=== PATIENT | female | born 1945 | race Caucasian/White ===

== ENCOUNTER → 2021-02-14 10:22 | Outpatient (CLI) | payer MEDICARE, SELFPAY ==
--- NOTE | ~2021-02-14 | XR_ITS ---
EXAMINATION: XR shoulder RT min 2V DATE: 02/14/2021 10:55 INDICATION: Right shoulder pain TECHNIQUE: AP internally and externally rotated, AP oblique externally rotated and axillary views of the affected shoulder were obtained. COMPARISON: None FINDINGS: Normal alignment. No fracture. Glenohumeral joint is normal. Mild acromioclavicular osteoarthritis w ith several dystrophic calcification along the cephalad margin of the joint space. Small globular reg ion of amorphous calcification along the posterior facet of the greater tuberosity consistent with te res minor calcific tendinitis. Mild cystic change more anteriorly along the greater tuberosity. Visua lized portions of the lungs are clear. Soft tissues are unremarkable. IMPRESSION: 1. Right teres minor calcific tendinitis. 2. Mild acromioclavicular osteoarthritis. Reviewed, dictated and finalized at location B.
== END ==
PROVIDERS: PCP Family Medicine; Visit Provider Nurse Practitioner Family
DX: M19.011 Primary osteoarthritis, right shoulder (principal); M75.31 Calcific tendinitis of right shoulder
CPT/HCPCS: 73030

== ENCOUNTER → 2021-05-17 09:45 | Outpatient (CLI) | payer MEDICARE, SELFPAY ==
--- NOTE | ~2021-05-17 | XR_ITS ---
EXAMINATION: XR hand LT min 3V, XR hand RT min 3V EXAM DATE: 05/17/2021 10:09 INDICATION: Elevated rheumatoid factor. TECHNIQUE: Right hand frontal, lateral and oblique projections obtained and reviewed. Left hand fron susi, lateral and oblique projections obtained and reviewed. There is no prior study for comparison. FINDINGS: Right hand: There is moderate right 1st interphalangeal, mild to moderate metacarpophalangeal and mil d carpometacarpal primary osteoarthritis. Mild distal interphalangeal arthritis 2nd and 3rd digits. Less arthritis at other joints. There are no bony erosions identified. Mild chondrocalcinosis triangu lar fibrocartilage. Chondrocalcinosis can be an age related finding, but with other possible etiologi es including CPPD, parathyroid disorders, hemochromatosis, gout. There are no acute fractures identif ied. Left hand: There are no bony erosions identified. There is mild 1st interphalangeal and carpometacarp al primary osteoarthritis. Less osteoarthritis other joints. There are no acute fractures or dislocat ions identified. There is no subcutaneous gas. There are no radiopaque foreign bodies. Minimal ch ondrocalcinosis. IMPRESSION: 1. Scattered polyarticular osteoarthritis. 2. Chondrocalcinosis. 3. No erosions (no radiographic evidence of rheumatoid). Reviewed, dictated and finalized at location B. IMPRESSION: 1. Scattered polyarticular osteoarthritis. 2. Chondrocalcinosis. 3. No erosions (no radiographic evidence of rheumatoid).
== END ==
PROVIDERS: Visit Provider Physician Assistant
DX: R76.8 Other specified abnormal immunological findings in serum (principal); M25.50 Pain in unspecified joint; M19.042 Primary osteoarthritis, left hand; M11.242 Other chondrocalcinosis, left hand; M11.241 Other chondrocalcinosis, right hand; M19.041 Primary osteoarthritis, right hand
CPT/HCPCS: 73130

== ENCOUNTER 2023-07-08 08:41 | Emergency (ER) | payer MEDICARE, SELFPAY ==
--- NOTE | 2023-07-08 08:45 | ED.NAVMDI ---
HPI - Nausea/Vomiting/Diarrhea General Chief complaint: Nausea/Vomiting/Diarrhea Stated complaint: VOMITING/DIARRHEA/NOT EATING Time Seen by Provider: 07/08/23 08:45 Source: patient and RN notes reviewed History of Present Illness HPI Narrative: Patient is a 77-year-old female who presents to urgent care with complaints of decreased appetite, nausea, vomiting and loose stools. Patient states that it started Thursday morning and did reach out to her PCP. Patient states that she was given Reglan which does not seem to help. Patient has been on lunch aero but dosing has not changed and she has been taking the medication for at least 2 months. Patient reports of some abdominal discomfort but denies pain at this time. Denies any chest discomfort. States that she has had some extreme fatigue and dizziness. Denies a fever. States that she did have a COVID test which was negative at home. No other acute complaints. Patient and spouse aware of the plan of care. Some parts of this dictation were generated by voice recognition software and may contain typographical and/or grammatical inaccuracies. Related Data Home Medications Medication Instructions Recorded Confirmed dulaglutide 1.5 mg/0.5 mL 1.5 mg subcut WEEKLY 02/14/21 07/08/23 subcutaneous pen injector (Trulicity) escitalopram oxalate 10 mg tablet 10 mg PO DAILY 02/14/21 07/08/23 (Lexapro) gabapentin 300 mg capsule 300 mg PO TID 02/14/21 07/08/23 glimepiride 4 mg tablet 4 mg PO BID 02/14/21 07/08/23 insulin glargine 100 unit/mL 10 unit subcut QPM 02/14/21 07/08/23 subcutaneous solution (Lantus U-100 Insulin) levothyroxine 75 mcg tablet 75 mcg PO DAILY 02/14/21 07/08/23 (Synthroid) lisinopril 20 1 tablet PO DAILY 02/14/21 07/08/23 mg-hydrochlorothiazide 25 mg tablet meloxicam 7.5 mg tablet 7.5 mg PO BID 02/14/21 07/08/23 metformin 500 mg tablet 500 mg PO BID 02/14/21 07/08/23 metoprolol tartrate 25 mg tablet 25 mg PO BID 02/14/21 07/08/23 rosuvastatin 10 mg tablet 10 mg PO DAILY 02/14/21 07/08/23 cyclosporine 0.05 % eye drops in a 1 drp ophthalmic (eye) DIRECTED 07/08/23 07/08/23 dropperette diclofenac sodium 1 % topical gel 1 ea topical DIRECTED 07/08/23 07/08/23 folic acid 1 mg tablet 1 mg PO DAILY 07/08/23 07/08/23 hydroxychloroquine 200 mg tablet 200 mg PO DIRECTED 07/08/23 07/08/23 metoclopramide HCl 10 mg tablet 10 mg PO DIRECTED 07/08/23 07/08/23 potassium citrate 10 mEq (1,080 10 meq PO DAILY 07/08/23 07/08/23 mg) tablet,extended release tirzepatide 10 mg/0.5 mL 1.5 mg subcut DIRECTED 07/08/23 07/08/23 subcutaneous pen injector (Mounjaro) Allergies Allergy/AdvReac Type Severity Reaction Status Date / Time Penicillins Allergy Severe severe Verified 07/08/23 08:49 swelling tetanus toxoid, adsorbed Allergy Mild hives Verified 07/08/23 08:49 Tetanus Vaccines and Toxoid Allergy Mild hives Verified 07/08/23 08:49 Review of Systems Review of Systems: CONSTITUTIONAL: Denies fever, chills, or sweats. Reports extreme fatigue EYES: Denies visual changes, redness, or discharge. ENT: Denies rhinorrhea, congestion, sore throat, or otalgia. CARDIOVASCULAR: Denies chest pain, palpitations, or edema. RESPIRATORY: Denies cough or dyspnea. GASTROINTESTINAL: Reports abdominal discomfort, nausea, vomiting and loose stools GENITOURINARY: Denies dysuria or hematuria. SKIN: Denies rash or itching. MUSCULOSKELETAL: Denies back pain, joint pain, or myalgia. NEUROLOGIC: Denies headache, numbness, or weakness. All other systems reviewed are negative, except as documented in HPI. [facility] Past Medical History Medical History Adult BMI 31.0-31.9 kg/sq m Family History Family History Mother Hypertension Grandparent Family history of Alzheimer's disease Malignant neoplasm of prostate Family history of lung cancer Family hi
[2023-07-08 08:55] VITALS: BP 121/91; PULSE 96; RESP 16; TEMP 35.9; O2SAT 100
[2023-07-08 09:01] VITALS: BP 121/91; PULSE 96; RESP 16; TEMP 35.9; O2SAT 100
== END 2023-07-08 09:04 | disposition short-term general hospital (02) ==
PROVIDERS: Emergency Provider Nurse Practitioner Family
DX: E86.0 Dehydration (principal); R11.2 Nausea with vomiting, unspecified; R19.7 Diarrhea, unspecified; E78.00 Pure hypercholesterolemia, unspecified; I10 Essential (primary) hypertension; E03.9 Hypothyroidism, unspecified
CPT/HCPCS: 99212; G0463